=== PATIENT | female | born 1985 | race Caucasian/White ===

== ENCOUNTER → 2019-06-10 10:35 | Outpatient (BNVA) | payer OTHER, SELFPAY | PROVIDERS: Visit Provider Family Medicine | DX: R05 Cough (principal); R50.81 Fever presenting with conditions classified elsewhere; R09.82 Postnasal drip; Z20.828 Contact with and (suspected) exposure to other viral communicable diseases | CPT/HCPCS: 87071; 87400; 87635; 87880 ==

== ENCOUNTER → 2019-07-25 20:11 | Outpatient (BNVA) | payer MEDICAID, SELFPAY | PROVIDERS: Visit Provider Nurse Practitioner | DX: N76.0 Acute vaginitis (principal); Z68.31 Body mass index [BMI] 31.0-31.9, adult; Z71.89 Other specified counseling | CPT/HCPCS: 87086; 87210; 87491; 87591 ==

== ENCOUNTER → 2020-06-02 14:05 | Outpatient (BNVA) | payer SELFPAY | PROVIDERS: Visit Provider Nurse Practitioner Family | DX: J02.0 Streptococcal pharyngitis (principal) | CPT/HCPCS: 87880 ==

== ENCOUNTER → 2020-07-04 10:15 | Outpatient (BNVA) | payer MEDICAID, SELFPAY | PROVIDERS: Visit Provider Registered Nurse Neonatal Intensive Care | DX: J02.0 Streptococcal pharyngitis (principal) | CPT/HCPCS: 87880 ==

== ENCOUNTER 2020-10-03 11:22 | Emergency (ER) | payer MEDICAID, SELFPAY ==
[2020-10-03 13:02] VITALS: BP 108/74; PULSE 87; RESP 19; TEMP 36.8; O2SAT 97; BMI 28.1
--- NOTE | 2020-10-03 13:31 | W.ED.GENADLT ---
HPI - General Adult General: Chief complaint: General Medical Stated complaint: SORE THROAT Time Seen by Provider: 10/03/20 13:23 Source: patient Mode of arrival: ambulatory Limitations: no limitations History of Present Illness: HPI narrative: Patient is a 35-year-old female who presents to ED today with complaint of sore throat, swollen lymph nodes in her neck, headache, subjective fevers, chills, and body aches that she has had over the past 2 to 3 days. Patient tells me she has had strep twice already this year. No positive COVID exposure. Complains of some minor abdominal pain without nausea, vomiting, or changes in bowel habits. Denies SOB, cough, chest pains. Onset (ago): day(s) Relieving factors: none Exacerbating factors: none Associated symptoms: Deny chest pain, dyspnea, headache(s), nausea, rash or vomiting Review of Systems Const: Reports: fever(s) (subjective), chills and body aches; Denies: change in appetite or change in weight Eyes: Denies: change in vision or blurry vision ENMT: Reports: throat pain, enlarged tonsils and odynophagia; Denies: ear or mastoid pain, nasal discharge or nasal congestion Card: Denies: chest pain Resp: Denies: dyspnea GI: Reports: abdominal pain; Denies: nausea, vomiting, diarrhea or change in stool character : Denies: flank pain or dysuria Musc: Reports: neck pain (swollen lymph nodes) Skin/Breast: Denies: rash Neuro: Denies: headache(s), numbness in extremities, weakness in extremities or sensory changes [facility] ED PFSH: Social History (Updated 06/10/19 @ 10:59 by Radha Tony LPN) Smoking and tobacco status: never smoked Alcohol intake: never Physical Exam Const: COMMON NORMALS: no acute distress, average body habitus, patient oriented x3, no limitations, healthy appearing, alert and well nourished GENERAL APPEARANCE: cooperative ORIENTATION/CONSCIOUSNESS: Yes awake, Yes oriented to person, Yes oriented to place and Yes oriented to time HENMT: COMMON NORMALS: normocephalic, atraumatic, hearing grossly normal bilaterally, external ears normal, EAC's normal, TM's normal bilaterally, Normal external nose present, Normal nasal mucous membranes and turbinates present, moist oral mucous membranes, dentition normal and gingiva normal HEAD & SCALP: normal to inspection, normocephalic and atraumatic FACE & SINUS: normal facial exam and sinuses nontender NOSE: Normal external nose present and Normal nasal mucous membranes and turbinates present EXTERNAL EAR: Yes external ears normal EXTERNAL AUDITORY CANAL: EAC's normal TYMPANIC MEMBRANE: TM's normal bilaterally MOUTH: Normal oral and palatal mucosa present, lip normal and tongue normal TEETH & GINGIVA: Yes fair dentition THROAT: posterior oropharynx normal and abnormal tonsil bilateral erythema and exudates Eye: GENERAL EYE: appearance normal, both eyes and all related structures Neck/C-Spine: COMMON NORMALS: full ROM and no meningeal signs GENERAL: Yes lymphadenopathy Resp: COMMON NORMALS: normal respiratory effort and clear to auscultation bilaterally AUSCULTATION: clear to auscultation bilaterally Cardio: COMMON NORMALS: regular rate and regular rhythm RATE: regular rate RHYTHM: regular rhythm Neuro: COMMON NORMALS: patient oriented x3 SENSORIUM/ORIENTATION: Yes alert, Yes oriented to person, Yes oriented to place and Yes oriented to time MENINGEAL SIGNS: Yes no meningeal signs Skin: COMMON NORMALS: no rashes or lesions noted GENERAL SKIN EXAM: no rashes or lesions noted Course Vital Signs: Vital signs: Vital Signs Temperature 98.2 F 10/03/20 13:02 Pulse Rate 87 10/03/20 13:02 Respiratory Rate 19 H 10/03/20 13:02 Blood Pressure 108/74 10/03/20 13:02 Pulse Oximetry 97 10/03/20 13:02 MDM - General Adult Lab Data: Attestation: I reviewed the patient's lab results. Labs: Lab Results 10/03/20 10/03/20 10/03/20 Range/Units 14:06 14:06 14:59 Monoscreen Negative (Negative) SARS-CoV-2 Ag (Rap id) Positive H (Negative) Group A Strep Rapi d Negative (Negative) Discharge Plan Discharge Patient Disposition: Home Clinical Impression: COVID-19 Condition: Stable Prescriptions: No Action citalopram [Celexa] 40 mg tablet 40 mg PO DAILY RF: 0 alprazolam [Xanax] 0.25 mg tablet 0.25 mg PO .prn RF: 0 cephalexin 500 mg tablet 500 mg PO BID 10 Days Qty: 20 RF: 0 Discharge Orders: Discharge ED (Routine); Ordered 10/03/20 Ordered By: Yvette Clarke Activity Restrictions/Additional Instructions: You need to quarantine for 10 days starting at symptom onset. Quarantine will not and until you are afebrile without medications for 24 hours and symptoms are improving. You may follow-up with primary care return to the ED for severe shortness of breath or difficulty breathing or any other concerns you may have. 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
[2020-10-03 14:34] LABS: SARS Covid-2 Antigen Positive (Negative)
[2020-10-03 14:35] LABS: Rapid Strep A Test Negative (Negative)
[2020-10-03 15:16] LABS: Monoscreen Negative (Negative)
[2020-10-03 15:54] VITALS: BP 109/77; PULSE 88; RESP 18; TEMP 36.9; O2SAT 97
== END 2020-10-03 13:50 | disposition home or self-care (01) ==
PROVIDERS: Emergency Provider Physician Assistant
DX: U07.1 COVID-19 (principal)
CPT/HCPCS: 86308; 87081; 87426; 87880; 99282

== ENCOUNTER 2021-05-24 13:25 | Outpatient (CLI) | payer MEDICAID, SELFPAY ==
--- NOTE | 2021-05-24 13:32 | MM_ITS ---
WS: [id number] BILATERAL SCREENING 3D TOMOSYNTHESIS DIGITAL MAMMOGRAM WITH CAD HISTORY: SCREENING COMPARISON: 03/18/2018 Bilateral CC and MLO views submitted. Computer aided detection analyzed. Breast composition: There are scattered areas of fibroglandular density. No suspicious masses, microc alcifications or architectural distortion. MM/[place] [id number] IMPRESSION: BI-RADS: 1-Negative FOLLOW UP: 1 Year Follow-up
== END 2021-05-24 13:26 | disposition home or self-care (01) ==
PROVIDERS: PCP Registered Nurse; Visit Provider Registered Nurse
DX: Z12.31 Encounter for screening mammogram for malignant neoplasm of breast (principal)
CPT/HCPCS: 77063; 77067

== ENCOUNTER 2021-05-31 07:34 | Emergency (ER) | payer MEDICAID, SELFPAY ==
[2021-05-31 07:59] VITALS: BP 108/70; PULSE 83; RESP 15; TEMP 36.6; O2SAT 94; BMI 25.0
--- NOTE | 2021-05-31 08:13 | CT_ITS ---
WS: [id number] CT ABDOMEN AND PELVIS WITH CONTRAST HISTORY: periumbilical pain and right flank pain, n/v TECHNIQUE: Imaging performed of the abdomen and pelvis with IV contrast. Single phase imaging of the abdomen. Coronal and sagittal reformats are submitted. All CT scans at [facility] use at [address] one of these dose optimization techniques: automated exposure control; mA and/or kV adjustment per patient size (includes targeted exams where dose is matched to clinical indication); or iterative re construction. IV CONTRAST: Omnipaque 350; 95 mL IV. Oral contrast: No DLP: 1372.56 mGy.cm COMPARISON: 02/25/2013 Lower thorax: Lung bases are clear. Heart is normal size. No hiatal hernia. Liver/biliary system: Normal size liver. No bile duct dilatation or mass identified. No filling defec t in the portal vein. There is very mild periportal edema. Gallbladder: Normal. No gallstones or wall thickening. No pericholecystic fluid. Pancreas: Normal size pancreas and pancreatic duct. No adjacent inflammation. Spleen: Normal size spleen. No mass or infarct. Adrenal glands: Normal. Right kidney: Several nonobstructing 3 to 4 mm calcifications in the renal pelvis. No mass. There is very mild dilatation of the RIGHT renal pelvis and proximal ureter. The distal RIGHT ureter cannot be followed in its entirety but there is a calcification measuring 4 mm in the expected location of the distal ureter. I favor this is probably a distal ureteral calcification. Left kidney: Nonobstructing 4 mm calcification lower pole LEFT kidney. Aorta: Normal. Lymphadenopathy: None. Free fluid: None. GI tract: The appendix is identified at top normal size. No adjacent inflammation. Stomach is nondist ended. No small bowel obstruction. Moderate amount of increased fecal material in the RIGHT colon. Abdominal wall: Fat containing umbilical hernia. Pelvis: No free fluid in the pelvis. A small amount of edema surrounding the uterus and cervix althou gh no free fluid. These changes can be seen with cervicitis or early changes of pelvic inflammatory d isease. Bones: Unremarkable. CT/CT abdomen pelvis w con* [id number] IMPRESSION: 1. Suspicious for 4 mm stone in the distal RIGHT ureter. Entire ureter cannot be followed therefore this could be a phlebolith but there is a very small amou nt of dilatation involving the renal pelvis. 2. The additional nonobstructing small bilateral renal calculi. Next line is s mall amount of periportal edema can be seen with IV hydration or hepatitis. 3. Normal appendix.
--- NOTE | 2021-05-31 08:16 | ED_ITS ---
Documented by User: AMY Mccormack 06/01/21 12:00 HPI - Abdominal Pain General: Chief Complaint: Abdominal Pain Stated Complaint: Rt side back pain- severe, N/V Time Seen by Provider: 05/31/21 07:43 History of Present Illness: Patient is a 36-year-old female comes to the ED with abdominal pain. This morning patient started having severe abdominal pain that she rated a 10 out of 10 along with some nausea and vomiting. Pain has improved from earlier this morning and she currently rates her pain here in the ED 4 out of 10. She has a history of kidney stones and says her pain was similar to prior kidney stones. Pain was located in the right flank. She also states for the past 3 weeks she has had some mild epigastric and periumbilical abdominal pain that worsens after she eats. Currently has some periumbilical pain. She endorses having increased frequency of loose stools for the past 3 weeks as well. Endorses dysuria. Denies any fever, chills, shortness of breath, blood in the stool or blood in the urine. Associated Symptoms: Reports diarrhea, dysuria, nausea and vomiting; Denies chills, constipation, fever(s), hematochezia and hematuria Review of Systems Const: Denies: fever(s), chills or fatigue Eyes: Denies: change in vision or eye discomfort ENMT: Denies: throat pain, odynophagia, nasal discharge or nasal congestion Card: Denies: chest pain, palpitations, edema, swelling of feet/ankles, dyspnea on exertion or orthopnea Resp: Denies: dyspnea, productive cough or non-productive cough GI: Reports: abdominal pain, nausea, vomiting and diarrhea; Denies: constipation or hematochezia : Reports: flank pain and dysuria; Denies: hematuria Musc: Denies: neck pain, back pain or extremity swelling Skin/Breast: Denies: rash or new lesions Neuro: Denies: headache(s), numbness in extremities or weakness in extremities [facility] ED PFSH: Medical History (Updated 06/01/21 @ 11:57 by AMY Mccormack) No pertinent family history Surgical History (Updated 06/01/21 @ 11:57 by AMY Mccormack) No pertinent past surgical history Social History Smoking and tobacco status: never smoked Alcohol intake: never Physical Exam Const: COMMON NORMALS: patient oriented x3 and alert GENERAL APPEARANCE: cooperative HENMT: COMMON NORMALS: normocephalic HEAD & SCALP: normocephalic MOUTH: Normal oral and palatal mucosa present THROAT: posterior oropharynx normal and uvula midline Eye: COMMON NORMALS: Equal, round and reactive pupils present and conjunctivae normal CONJUNCTIVA: Yes conjunctivae normal PUPIL: Yes Equal, round and reactive pupils present Neck/C-Spine: COMMON NORMALS: supple GENERAL: Yes normal visual inspection Resp: COMMON NORMALS: normal respiratory effort, No retractions, No use of accessory muscles and clear to auscultation bilaterally AUSCULTATION: clear to auscultation bilaterally Cardio: COMMON NORMALS: regular rate, regular rhythm, S1 normal heart sound present, S2 normal heart sound present, No gallops present (Cardio), No clicks present (Cardio), No murmurs present (Cardio) and Peripheral pulses 2+ throughout RATE: regular rate RHYTHM: regular rhythm HEART SOUNDS: S1 normal heart sound present and S2 normal heart sound present PERIPHERAL PULSES: Peripheral pulses 2+ throughout GI: COMMON NORMALS: Normal to inspection, nondistended, normoactive bowel sounds present, Soft to palpation and no masses PALPATION: Yes Soft to palpation and Yes Tenderness to palpation present (GI) Details: RUQ and other (Periumbilical and right upper quadrant.) : BLADDER/KIDNEY EXAM: Yes CVA tenderness on the right Back/Pelvis: GENERAL BACK: Yes CVA tenderness Extremity: COMMON NORMALS: normal to inspection Neuro: COMMON NORMALS: patient oriented x3 SENSORIUM/ORIENTATION: Yes alert GAIT: Yes Normal gait present Skin: GENERAL SKIN EXAM: dry skin Course Vital Signs: Vital signs: Vital Signs Temperature 97.8 F 05/31/21 07:59 Pulse Rate 72 05/31/21 10:56 Respiratory Rate 18 05/31/21 10:56 Blood Pressure 110/71 05/31/21 10:56 Pulse Oximetry 99 05/31/21 10:56 MDM - Abdominal Pain Medical Decision Making Patient is a 36 right flank pain. CBC and CMP were unremarkable. UA showed some red blood cells but no signs of infection. CT of abdomen showed a 4 mm stone in the distal right ureter. Patient's pain was controlled with morphine and Toradol. Placed an order with case management for patient to be referred to Dr. Meléndez. Patient was discharged home with a prescription for naproxen, tamsulosin, Zofran and some hydrocodone for acute pain. Return ED precautions given. Patient understood and agreed with plan. Lab Data : 05/31/21 08:42 05/31/21 08:42 Labs/Radiology: Radiology Impressions Abdomen/Pelvis CT 05/31/21 08:13 IMPRESSION: 1. Suspicious for 4 mm stone in the distal RIGHT ureter. Entire ureter cannot be followed therefore this could be a phlebolith but there is a very small amount of dilatation involving the renal pelvis. 2. The additional nonobstructing small bilateral renal calculi. Next line is small amount of periportal edema can be seen with IV hydration or hepatitis. 3. Normal appendix. Laboratory Results WBC 5.7 10^3/uL (4.0-10.0) 05/31/21 08:42 RBC 3.65 10^6/uL (4.1-5.3) L 05/31/21 08:42 Hgb 11.4 g/dL (11.5-15.3) L 05/31/21 08:42 Hct 34.7 % (37.0-47.0) L 05/31/21 08:42 MCV 95.1 fl (81-99) 05/31/21 08:42 MCH 31.2 pg (28.0-34.0) 05/31/21 08:42 MCHC 32.9 g/dL (30.0-36.0) 05/31/21 08:42 RDW 12.3 % (12.1-15.1) 05/31/21 08:42 Plt Count 246 10^3/cmm (130-400) 05/31/21 08:42 MPV 10.3 fL (7.4-10.4) 05/31/21 08:42 Neut % (Auto) 62.7 % 05/31/21 08:42 Lymph % (Auto) 26.0 % 05/31/21 08:42 Phelps % (Auto) 6.9 % 05/31/21 08:42 Eos % (Auto) 3.5 % 05/31/21 08:42 Baso % (Auto) 0.7 % 05/31/21 08:42 Neut # (Auto) 3.54 10^3/uL (1.8-7.7) 05/31/21 08:42 Lymph # (Auto) 1.5 10^3/uL (0.8-4.8) 05/31/21 08:42 Phelps # (Auto) 0.4 10^3/uL (0.2-0.9) 05/31/21 08:42 Eos # (Auto) 0.2 10^3/uL (0.0-0.8) 05/31/21 08:42 Baso # (Auto) 0.0 10^3/uL (0.0-0.1) 05/31/21 08:42 Nucleated RBC % (auto) 0 % 05/31/21 08:42 Nucleated RBCs # 0.0 /100WBC 05/31/21 08:42 Sodium 139 mmol/L (136-145) 05/31/21 08:42 Potassium 3.9 mmol/L (3.5-5.1) 05/31/21 08:42 Chloride 106 mmol/L (98-107) 05/31/21 08:42 Carbon Dioxide 25 mmol/L (22-29) 05/31/21 08:42 Anion Gap 11.9 (5-19) 05/31/21 08:42 BUN 11 mg/dL (6-20) 05/31/21 08:42 Creatinine 0.6 mg/dL (0.5-0.9) 05/31/21 08:42 GFR Calculation 111.9 mL/min (90-130) 05/31/21 08:42 Glucose 96 mg/dL (65-115) 05/31/21 08:42 Calculated Osmolality 287 mOsm/kg (285-295) 05/31/21 08:42 Calcium 8.8 mg/dL (8.5-10.5) 05/31/21 08:42 Total Bilirubin 0.3 mg/dL (0.15-1.2) 05/31/21 08:42 AST 14 U/L (0-32) 05/31/21 08:42 ALT 16 U/L (0-33) 05/31/21 08:42 Alkaline Phosphatase 85 IU/L (35-105) 05/31/21 08:42 Total Protein 6.3 g/dL (6.6-8.7) L 05/31/21 08:42 Albumin 3.8 g/dL (3.5-5.2) 05/31/21 08:42 Globulin 2.5 g/dL (1.3-4.6) 05/31/21 08:42 Lipase 16 U/L (13-60) 05/31/21 08:42 HCG, Qual Negative (Negative) 05/31/21 08:42 Urine Color Dark yellow (Yellow) 05/31/21 Unknown Urine Appearance Cloudy (CLEAR) 05/31/21 Unknown Urine pH 7 (5-7) 05/31/21 Unknown Ur Specific [place] 1.015 (1.005-1.030) 05/31/21 Unknown Urine Protein Neg (Negative) 05/31/21 Unknown Urine Glucose (UA) Norm (Normal) 05/31/21 Unknown Urine Ketones Negative (Negative) 05/31/21 Unknown Urine Blood 3+ (Negative) H 05/31/21 Unknown Urine Nitrate Negative (Negative) 05/31/21 Unknown Urine Bilirubin 1+ (Negative) H 05/31/21 Unknown Urine Urobilinogen 4 mg/dL (Negative) H 05/31/21 Unknown Ur Leukocyte Esterase Negative (Negative) 05/31/21 Unknown Urine RBC >100 /hpf (0-2) H 05/31/21 Unknown Urine WBC None /hpf (0-5) 05/31/21 Unknown Ur Squamous Epith Cells 15-25 /hpf (0-5) H 05/31/21 Unknown Amorphous Sediment Not Reportable 05/31/21 Unknown Urine Bacteria 1+ /hpf (NONE) H 05/31/21 Unknown Urine Mucus Trace /hpf 05/31/21 Unknown Discharge Plan Discharge Patient Disposition: Home Clinical Impression: Kidney stone Condition: Stable Prescriptions: New tamsulosin 0.4 mg capsule 0.4 mg PO DAILY Qty: 20 0RF Rx Instructions: Take 1 tab daily until you passed kidney stone. ondansetron 4 mg tablet,disintegrating 4 mg PO Q8H PRN (Reason: nausea and vomiting) Qty: 12 0RF Naprosyn 500 mg tablet 500 mg PO BID PRN (Reason: pain) Qty: 12 0RF No Action citalopram [Celexa] 40 mg tablet 40 mg PO DAILY 0RF alprazolam [Xanax] 0.25 mg tablet 0.25 mg PO BEDTIME PRN (Reason: Anxiety) 0RF Discharge Orders: Discharge ED (Routine); Ordered 05/31/21 Ordered By: Wilfredo Arellano Referrals: Kathy Isaac FNP [Primary Care Provider] - Discharge Diet: Regular Discharge Activity: Increase activity as tolerated Patient Instructions: Kidney Stones (ED), How to Strain Your Urine (ED), Opioid Safety Activity Restrictions/Additional Instructions: Follow-up with medical provider as directed. Case management should be contacting you in the next several days to set up an appointment with Dr. Meléndez the urologist. Strain urine to catch stone and drink lots of fluid to stay hydrated and help pass stone. Take medications as prescribed. Return to the ER or your medical provider if condition worsens. Please read and understand discharge instructions. If any questions, please ask. 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8 F 05/31/21 07:59 Pulse Rate 72 05/31/21 10:56 Respiratory Rate 18 05/31/21 10:56 Blood Pressure 110/71 05/31/21 10:56 Pulse Oximetry 99 05/31/21 10:56 MDM - Abdominal Pain Medical Decision Making Patient is a 36 right flank pain. CBC and CMP were unremarkable. UA showed some red blood cells but no signs of infection. CT of abdomen showed a 4 mm stone in the distal right ureter. Patient's pain was controlled with morphine and Toradol. Placed an order with case management for patient to be referred to Dr. Meléndez. Patient was discharged home with a prescription for naproxen, tamsulosin, Zofran and some hydrocodone for acute pain. Return ED precautions given. Patient understood and agreed with plan. Chart reviewed and patient discussed with midlevel. Agree with assessment and plan. Lab Data : 05/31/21 08:42 05/31/21 08:42 Labs/Radiology: Radiology Impressions Abdomen/Pelvis CT 05/31/21 08:13 IMPRESSION: 1. Suspicious for 4 mm stone in the distal RIGHT ureter. Entire ureter cannot be followed therefore this could be a phlebolith but there is a very small amount of dilatation involving the renal pelvis. 2. The additional nonobstructing small bilateral renal calculi. Next line is small amount of periportal edema can be seen with IV hydration or hepatitis. 3. Normal appendix. Laboratory Results WBC 5.7 10^3/uL (4.0-10.0) 05/31/21 08:42 RBC 3.65 10^6/uL (4.1-5.3) L 05/31/21 08:42 Hgb 11.4 g/dL (11.5-15.3) L 05/31/21 08:42 Hct 34.7 % (37.0-47.0) L 05/31/21 08:42 MCV 95.1 fl (81-99) 05/31/21 08:42 MCH 31.2 pg (28.0-34.0) 05/31/21 08:42 MCHC 32.9 g/dL (30.0-36.0) 05/31/21 08:42 RDW 12.3 % (12.1-15.1) 05/31/21 08:42 Plt Count 246 10^3/cmm (130-400) 05/31/21 08:42 MPV 10.3 fL (7.4-10.4) 05/31/21 08:42 Neut % (Auto) 62.7 % 05/31/21 08:42 Lymph % (Auto) 26.0 % 05/31/21 08:42 Phelps % (Auto) 6.9 % 05/31/21 08:42 Eos % (Auto) 3.5 % 05/31/21 08:42 Baso % (Auto) 0.7 % 05/31/21 08:42 Neut # (Auto) 3.54 10^3/uL (1.8-7.7) 05/31/21 08:42 Lymph # (Auto) 1.5 10^3/uL (0.8-4.8) 05/31/21 08:42 Phelps # (Auto) 0.4 10^3/uL (0.2-0.9) 05/31/21 08:42 Eos # (Auto) 0.2 10^3/uL (0.0-0.8) 05/31/21 08:42 Baso # (Auto) 0.0 10^3/uL (0.0-0.1) 05/31/21 08:42 Nucleated RBC % (auto) 0 % 05/31/21 08:42 Nucleated RBCs # 0.0 /100WBC 05/31/21 08:42 Sodium 139 mmol/L (136-145) 05/31/21 08:42 Potassium 3.9 mmol/L (3.5-5.1) 05/31/21 08:42 Chloride 106 mmol/L (98-107) 05/31/21 08:42 Carbon Dioxide 25 mmol/L (22-29) 05/31/21 08:42 Anion Gap 11.9 (5-19) 05/31/21 08:42 BUN 11 mg/dL (6-20) 05/31/21 08:42 Creatinine 0.6 mg/dL (0.5-0.9) 05/31/21 08:42 GFR Calculation 111.9 mL/min (90-130) 05/31/21 08:42 Glucose 96 mg/dL (65-115) 05/31/21 08:42 Calculated Osmolality 287 mOsm/kg (285-295) 05/31/21 08:42 Calcium 8.8 mg/dL (8.5-10.5) 05/31/21 08:42 Total Bilirubin 0.3 mg/dL (0.15-1.2) 05/31/21 08:42 AST 14 U/L (0-32) 05/31/21 08:42 ALT 16 U/L (0-33) 05/31/21 08:42 Alkaline Phosphatase 85 IU/L (35-105) 05/31/21 08:42 Total Protein 6.3 g/dL (6.6-8.7) L 05/31/21 08:42 Albumin 3.8 g/dL (3.5-5.2) 05/31/21 08:42 Globulin 2.5 g/dL (1.3-4.6) 05/31/21 08:42 Lipase 16 U/L (13-60) 05/31/21 08:42 HCG, Qual Negative (Negative) 05/31/21 08:42 Urine Color Dark yellow (Yellow) 05/31/21 Unknown Urine Appearance Cloudy (CLEAR) 05/31/21 Unknown Urine pH 7 (5-7) 05/31/21 Unknown Ur Specific [place] 1.015 (1.005-1.030) 05/31/21 Unknown Urine Protein Neg (Negative) 05/31/21 Unknown Urine Glucose (UA) Norm (Normal) 05/31/21 Unknown Urine Ketones Negative (Negative) 05/31/21 Unknown Urine Blood 3+ (Negative) H 05/31/21 Unknown Urine Nitrate Negative (Negative) 05/31/21 Unknown Urine Bilirubin 1+ (Negative) H 05/31/21 Unknown Urine Urobilinogen 4 mg/dL (Negative) H 05/31/21 Unknown Ur Leukocyte Esterase Negative (Negative) 05/31/21 Unknown Urine RBC >100 /hpf (0-2) H 05/31/21 Unknown Urine WBC None /hpf (0-5) 05/31/21 Unknown Ur Squamous Epith Cells 15-25 /hpf (0-5) H 05/31/21 Unknown Amorphous Sediment Not Reportable 05/31/21 Unknown Urine Bacteria 1+ /hpf (NONE) H 05/31/21 Unknown Urine Mucus Trace /hpf 05/31/21 Unknown Discharge Plan Discharge Patient Disposition: Home Clinical Impression: Kidney stone Condition: Stable Prescriptions: New tamsulosin 0.4 mg capsule 0.4 mg PO DAILY Qty: 20 0RF Rx Instructions: Take 1 tab daily until you passed kidney stone. ondansetron 4 mg tablet,disintegrating 4 mg PO Q8H PRN (Reason: nausea and vomiting) Qty: 12 0RF Naprosyn 500 mg tablet 500 mg PO BID PRN (Reason: pain) Qty: 12 0RF No Action citalopram [Celexa] 40 mg tablet 40 mg PO DAILY 0RF alprazolam [Xanax] 0.25 mg tablet 0.25 mg PO BEDTIME PRN (Reason: Anxiety) 0RF Discharge Orders: Discharge ED (Routine); Ordered 05/31/21 Ordered By: Wilfredo Arellano Referrals: Kathy Isaac FNP [Primary Care Provider] - Discharge Diet: Regular Discharge Activity: Increase activity as tolerated Patient Instructions: Kidney Stones (ED), How to Strain Your Urine (ED), Opioid Safety Activity Restrictions/Additional Instructions: Follow-up with medical provider as directed. Case management should be contacting you in the next several days to set up an appointment with Dr. Meléndez the urologist. Strain urine to catch stone and drink lots of fluid to stay hydrated and help pass stone. Take medications as prescribed. Return to the ER or your medical provider if condition worsens. Please read and understand discharge instructions. If any questions, please ask. 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
[2021-05-31] MEDS: sodium chloride 0.9% 1,000 ML 999 ML IV (08:37)
[2021-05-31] MEDS: ondansetron 2 mg/ML SDV 2 mL 4 MG IVP (08:37)
[2021-05-31 08:38] VITALS: RESP 18; O2SAT 97
[2021-05-31] MEDS: morphine 4 mg/mL SDV 1 mL IVP (08:38)
[2021-05-31 08:39] VITALS: BP 115/74; PULSE 77; RESP 18; O2SAT 98
[2021-05-31 08:48] LABS: Basophils % 0.7 %; Eosinophils # 0.2 10^3/uL (0.0-0.8); Eosinophils % 3.5 %; Hematocrit 34.7 % (37.0-47.0); Hemoglobin 11.4 g/dL (11.5-15.3); Lymphocytes # 1.5 10^3/uL (0.8-4.8); Mean Corpuscular HGB Conc 32.9 g/dL (30.0-36.0); Mean Corpuscular Hemoglobin 31.2 pg (28.0-34.0); Mean Corpuscular Volume 95.1 fl (81-99); Mean Platelet Volume 10.3 fL (7.4-10.4); Monocytes # 0.4 10^3/uL (0.2-0.9); Monocytes % 6.9 %; Neutrophils # 3.54 10^3/uL (1.8-7.7); Neutrophils % 62.7 %; Nucleated Red Blood Cells % 0 %; Platelet Count 246 10^3/cmm (130-400); Red Blood Count 3.65 10^6/uL (4.1-5.3); Red Cell Distribution Width 12.3 % (12.1-15.1); White Blood Count 5.7 10^3/uL (4.0-10.0)
[2021-05-31 08:58] LABS: Add Urine Culture? No; Add Urine Microscopic? YES; Bacteria Urine 1+ /hpf; Bilirubin Urine 1+ (Negative); Blood Urine 3+ (Negative); Glucose Urine UA Norm (Normal); Ketones Urine Negative (Negative); Leukocyte Esterase Urine Negative (Negative); Mucus Urine TRACE /hpf; Nitrate Urine Negative (Negative); Protein Urine Neg (Negative); RBC Urine >100 /hpf (0-2); Specific Gravity, Urine 1.015 (1.005-1.030); Squamous Epithelial Cell Urine 15-25 /hpf (0-5); Urine Appearance Cloudy (CLEAR); Urine Color Dark Yellow (Yellow); Urobilinogen Urine 4 mg/dL (Negative); pH Urine 7 (5-7)
[2021-05-31 09:03] LABS: HCG, Serum Qual Negative (Negative)
[2021-05-31 09:11] LABS: Alanine Aminotransferase 16 U/L (0-33); Albumin Level 3.8 g/dL (3.5-5.2); Alkaline Phosphatase 85 IU/L (35-105); Anion Gap 11.9 (5-19); Aspartate Amino Transferase 14 U/L (0-32); Blood Urea Nitrogen 11 mg/dL (6-20); Calcium 8.8 mg/dL (8.5-10.5); Carbon Dioxide 25 mmol/L (22-29); Chloride 106 mmol/L (98-107); Globulin 2.5 g/dL (1.3-4.6); Glomerular Filtration Rate 111.9 mL/min (90-130); Glucose 96 mg/dL (65-115); Lipase 16 U/L (13-60); Osmolality Calculated 287 mOsm/kg (285-295); Potassium 3.9 mmol/L (3.5-5.1); Sodium 139 mmol/L (136-145); Total Bilirubin 0.3 mg/dL (0.15-1.2); Total Protein 6.3 g/dL (6.6-8.7)
[2021-05-31] MEDS: iohexol 300 mg/mL 100 mL Btl IV (09:15)
[2021-05-31] MEDS: ketorolac 30 mg/mL INJ IVP (10:23)
[2021-05-31 10:56] VITALS: BP 110/71; PULSE 72; RESP 18; O2SAT 99
--- NOTE | 2021-06-01 11:19 | DCPLANNER ---
Addendum entered by Celia Ashfodr 06/21/21 15:33: Patient has a follow up appointment scheduled for 06.02.[address] Meléndez - patient did attend appointment. Addendum entered by Celia Ashford 06/02/21 07:08: Patient has a follow up appointment scheduled for Wednesday, June 02, 2021 at 8:[address] Meléndez. Clinic will call patient with appointment information. Original Note: emergency manager had message to schedule a follow up appointment for patient with urology. emergency manager sent patients information to the front office staff of urology thru the [email or web address] messaging system. Patients information will be printed and reviewed. Clinic will call patient with appointment information.
== END 2021-05-31 10:58 | disposition home or self-care (01) ==
PROVIDERS: Emergency Provider Physician Assistant; PCP Registered Nurse
DX: N20.0 Calculus of kidney (principal)
CPT/HCPCS: 74177; 80053; 81001; 83690; 84703; 85025; 96361; 96374; 96375; 99284; J1885; J2270; J2405; J7030; Q9967

== ENCOUNTER 2021-06-02 07:10 | Outpatient (CLI) | payer MEDICAID, SELFPAY ==
--- NOTE | 2021-06-02 07:15 | XR_ITS ---
WS: [id number] Exam: XR KUB [id number] Date/Time of Exam: 06/02/2021 7:15 AM Reason For Exam: KIDNEY STONE No bowel obstruction or free air. Small calcification superimpose both kidneys and may represent moisés l calculi. Nonspecific small bilateral pelvic calcifications. No sign of organ enlargement. Bony stru ctures are intact. XR/XR KUB [id number] IMPRESSION: 1. No acute abdominal finding. 2. Small calcification superimpose both kidneys and may represent multiple moisés l calculi.
== END 2021-06-02 07:11 | disposition home or self-care (01) ==
LOC: RAD 07:11
PROVIDERS: PCP Registered Nurse; Visit Provider Urology
DX: N20.0 Calculus of kidney (principal); N20.1 Calculus of ureter
CPT/HCPCS: 74018; 81003; 82365; 88300

== ENCOUNTER → 2022-01-15 11:36 | Outpatient (BNVA) | payer MEDICAID, SELFPAY | PROVIDERS: PCP Registered Nurse; Visit Provider Registered Nurse Neonatal Intensive Care | DX: R11.2 Nausea with vomiting, unspecified (principal); B34.9 Viral infection, unspecified | CPT/HCPCS: 87400 ==

== ENCOUNTER → 2022-05-03 18:11 | Outpatient (BNVA) | payer MEDICAID, SELFPAY | PROVIDERS: PCP Registered Nurse; Visit Provider Registered Nurse Neonatal Intensive Care | DX: J02.9 Acute pharyngitis, unspecified (principal) | CPT/HCPCS: 87071; 87880 ==

== ENCOUNTER → 2023-07-06 16:39 | Outpatient (BNVA) | payer MEDICAID, SELFPAY | PROVIDERS: PCP Registered Nurse; Visit Provider Emergency Medicine | DX: J02.9 Acute pharyngitis, unspecified (principal) | CPT/HCPCS: 87071; 87880 ==

== ENCOUNTER 2023-10-17 02:31 | Emergency (ER) | payer MEDICAID, SELFPAY ==
[2023-10-17 02:34] VITALS: BP 127/86; PULSE 90; RESP 18; TEMP 37; O2SAT 89; BMI 31.6
[2023-10-17] MEDS: ketorolac 30 mg/mL INJ IVP (03:17)
[2023-10-17] MEDS: methylPREDNISolone sod succ 125 mg/2 mL INJ IVP (03:17)
[2023-10-17] MEDS: orphenadrine 30 mg/mL Inj 2 mL 60 MG IVP (03:17)
--- NOTE | 2023-10-17 03:27 | ED_ITS ---
HPI - Back Pain/Injury General: Chief Complaint: Back Pain/Injury Stated Complaint: BACK PAIN Time Seen by Provider: 10/17/23 02:59 History of Present Illness: 38-year-old female who presents the [facility] room by ambulance with low back pain. She has been having issues with her back for months but over the last 3 to 4 days has had a much worse episode. Preethi got a bed and she could not. She was seen in the clinic today and started on a steroid and some muscle relaxers. On the ambulance she received fentanyl and Phenergan. On presentation here she is having difficulty staying awake and maintaining her oxygenation, but when she wakes up she says she is in excruciating 9 of 10 pain. No saddle numbness, no urinary retention or incontinence, no focal motor deficit, no sensory deficit. no recent fever. no cough. no shortness of breath. no chest pain. no abdominal pain. no nausea or vomiting. no dysuria. no altered mental status. no edema. Related Data Home Medications Medication Instructions Recorded Confirmed citalopram 40 mg tablet (Celexa) 40 mg PO DAILY 06/10/19 07/30/23 alprazolam 0.25 mg tablet (Xanax) 0.25 mg PO BEDTIME PRN Anxiety 07/04/20 07/30/23 Previous Rx's Medication Instructions Recorded ibuprofen 600 mg tablet 600 mg PO Q8H PRN pain #30 tabs 03/03/22 diclofenac sodium 50 mg 50 mg PO BID PRN pain #14 tabs 10/17/23 tablet,delayed release hydrocodone 5 mg-acetaminophen 325 1 tab PO Q6H PRN pain #20 tabs 10/17/23 mg tablet polyethylene glycol 3350 17 17 g PO DAILY #510 grams 10/17/23 gram/dose oral powder (Miralax) Allergies Allergy/AdvReac Type Severity Reaction Status Date / Time erythromycin base Allergy Unknown Verified 10/17/23 02:38 Review of Systems Narrative: Constitutional symptoms: Negative except as documented in HPI. Skin symptoms: Negative except as documented in HPI. Eye symptoms: Negative except as documented in HPI. ENMT symptoms: Negative except as documented in HPI. Respiratory symptoms: Negative except as documented in HPI. Cardiovascular symptoms: Negative except as documented in HPI. Gastrointestinal symptoms: Negative except as documented in HPI. Genitourinary symptoms: Negative except as documented in HPI. Musculoskeletal symptoms: Negative except as documented in HPI. Neurologic symptoms: Negative except as documented in HPI. Psychiatric symptoms: Negative except as documented in HPI. Endocrine symptoms: Negative except as documented in HPI. PFSH ED PFSH: Medical History No pertinent family history Surgical History No pertinent past surgical history Family History Father No problems noted. Mother Cancer cervical cancer with metastasis Social History (Updated 07/30/23 @ 13:11 by Jessie Soto NP) Smoking and tobacco/nicotine status: current every day tobacco/nicotine user cigarettes Packs smoked per day: 0.33 Years cigarettes smoked: 3 Alcohol intake: never Substance/Drug Use: never Current occupational status: employed Female Reproductive History: Date of last menstrual period: 09/11/23 Physical Exam Narrative: EXAM NARRATIVE: General: Alert, no acute distress. Head: Normocephalic Neck: Trachea midline Eye: Extraocular movements are intact. Ears, nose, mouth and throat: Oral mucosa moist Respiratory: Respirations are non-labored Musculoskeletal: Normal ROM Back: no step off, no focal tenderness, some paraspinal muscle tenderness Neurological: Alert and oriented to person, place, time, and situation, No focal neurological deficit observed. Psychiatric: Cooperative, appropriate mood & affect. Course Vital Signs: Vital signs: Vital Signs Temperature 98.6 F 10/17/23 02:34 Pulse Rate 90 10/17/23 02:34 Respiratory Rate 18 10/17/23 02:34 Blood Pressure 127/86 10/17/23 02:34 Pulse Oximetry 89 L 10/17/23 02:34 Oxygen Delivery Me thod Room Air 10/17/23 02:34 MDM - Back Pain/Injury Medical Decision Making Assessment and plan: Low back pain ?IV Flexeril and steroids here in the emergency room. I will add some pain medication and some diclofenac to her already written muscle relaxer and steroids. - Discharged home - Discussed plan with patient. Answered any questions. - Evaluation and treatment of this problem were appropriate in the emergency setting. No radiology studies performed this visit Discharge Plan Discharge Patient Disposition: Home Clinical Impression: Strain of lumbar region, Lumbar radiculopathy Condition: Stable Prescriptions: New hydrocodone-acetaminophen 5-325 mg tablet 1 tab PO Q6H PRN (Reason: pain) Qty: 20 0RF diclofenac sodium 50 mg tablet,delayed release (DR/EC) 50 mg PO BID PRN (Reason: pain) Qty: 14 0RF Miralax 17 gram/dose powder 17 g PO DAILY Qty: 510 0RF Rx Instructions: Take 1 scoop daily while taking pain medications. No Action citalopram [Celexa] 40 mg tablet 40 mg PO DAILY alprazolam [Xanax] 0.25 mg tablet 0.25 mg PO BEDTIME PRN (Reason: Anxiety) ibuprofen 600 mg tablet 600 mg PO Q8H PRN (Reason: pain) Qty: 30 0RF Discharge Orders: Discharge ED (Routine); Ordered 10/17/23 Ordered By: Keyonna Orlando Referrals: Kathy Isaac FNP [Primary Care Provider] - Discharge Diet: Usual diet Discharge Activity: Increase activity as tolerated Patient Instructions: Acute Low Back Pain (ED), Opioid Safety, Pain Management Activity Restrictions/Additional Instructions: Thank you for choosing [facility] for your healthcare needs today. Please realize this is an emergency room and that we are providing you with a medical screening exam and this may not be complete and all inclusive of all the testing and or work up that you may need to determine your ailment or severity of your illness. You have been screened and evaluated and felt safe for discharge. Health conditions do change or evolve sometimes and as such it is important that you follow up with your Primary Doctor to be re checked, 3-5 days is a general good time frame for follow up. You are always welcome to return to the ED for re assessment if your symptoms are worsening or you have new concerns Coding Level of Care Code ED Envelope Press Operator for Omer Cazares
[2023-10-17 04:40] VITALS: RESP 17
[2023-10-17] MEDS: oxyCODONE-APAP 10-325 mg Tablet 1 TAB PO (04:40)
--- NOTE | 2023-10-17 04:41 | PC.NURSE ---
PT IS SNORING WHEN ENTERING ROOM.
[2023-10-17 04:55] VITALS: BP 119/82; PULSE 85; RESP 18; O2SAT 95
== END 2023-10-17 04:57 | disposition home or self-care (01) ==
PROVIDERS: Emergency Provider Emergency Medicine; PCP Registered Nurse
DX: S39.012A Strain of muscle, fascia and tendon of lower back, initial encounter (principal); M54.16 Radiculopathy, lumbar region; F17.210 Nicotine dependence, cigarettes, uncomplicated; X58.XXXA Exposure to other specified factors, initial encounter
CPT/HCPCS: 96374; 96375; 99284; J1885; J2360; J2919

== ENCOUNTER → 2024-05-07 07:50 | Outpatient (BNVA) | payer MEDICAID, SELFPAY | PROVIDERS: PCP Registered Nurse; Visit Provider Nurse Practitioner Family | DX: J02.9 Acute pharyngitis, unspecified (principal) | CPT/HCPCS: 87880 ==

== ENCOUNTER → 2024-05-28 09:05 | Outpatient (BNVA) | payer MEDICAID, SELFPAY | PROVIDERS: PCP Registered Nurse; Visit Provider Nurse Practitioner Family | DX: J02.9 Acute pharyngitis, unspecified (principal) | CPT/HCPCS: 87880 ==